=== PATIENT | female | born 1945 | race Caucasian/White ===

== ENCOUNTER → 2016-07-27 | Outpatient (CLI) | payer OTHER ==
[~2016-07-27] MED LIST: /ADVA50050; /ESOM40CA; COUM1TAB; DILA100C; ENOX40SY; LAMI25TA; LIDOCAINE 1% MDV 20ML VIAL As Ordered ONE; LUMIGAN; PROAAER; VICO5TAB; ZOLO100T
--- NOTE | 2016-07-27 12:52 | REP ---
POST BIOPSY MAMMOGRAM RIGHT BREAST: Postbiopsy mammogram right breast is performed in the LM and axillary CC projections. A metallic clip is deployed following stereotactic biopsy of clustered microcalcifications in the central aspect of the right breast. The clip is deployed deep to the calcifications. The calcifications are no longer visualized. Signed by Lb Coombs MD 07/27/2016 05:14 P
--- NOTE | 2016-07-27 13:35 | REP ---
SPECIMEN RADIOGRAPH: Specimen radiograph performed following stereotactic biopsy of clustered microcalcifications in the right breast. Multiple calcifications are seen in the specimens. Signed by Lb Coombs MD 07/27/2016 05:14 P
--- NOTE | 2016-07-31 12:22 | REP ---
STEREOTACTIC RIGHT BREAST BIOPSY: The procedure was performed under the direct supervision of Dr. Coombs. Patient has a history of a microcalcific cluster far posteriorly in the right breast seen on the previous mammogram dated 05/26/2016. The risks and benefits of the procedure were explained to the patient and informed consent was obtained. A lateral medial approach was utilized. The calcifications were localized using stereotactic mammographic guidance. The skin was prepped and draped in a sterile fashion. 1% Xylocaine was used as a local anesthetic. An 8-gauge suction assisted Mammotome needle was inserted and six core biopsies samples were obtained. Specimen radiograph demonstrates the presence of calcifications to be within the specimen. A marker clip was placed at the biopsy site. The patient tolerated the procedure well and there were no immediate complications. After the appropriate amount of monitored convalescence, the patient was discharged from the department. Reviewed by SHYANN Salter 07/31/2016 04:11 PEdited and Signed by Lb Coombs MD 08/14/2016 11:39 A
== END ==
LOC: M RADPRO 09:54
PROVIDERS: ATTEND Surgery
DX: D24.1 Benign neoplasm of right breast (principal); J45.909 Unspecified asthma, uncomplicated; Z79.01 Long term (current) use of anticoagulants; Z79.899 Other long term (current) drug therapy; Z88.5 Allergy status to narcotic agent; Z88.8 Allergy status to other drugs, medicaments and biological substances; Z91.040 Latex allergy status

== ENCOUNTER → 2019-06-11 | Outpatient (REF) | payer MEDICARE ==
[~2019-06-11] MED LIST changes: -/ADVA50050; -/ESOM40CA; +ADVA1AER2; -ENOX40SY; -LIDOCAINE 1% MDV 20ML VIAL As Ordered ONE; +LOVE1INJ; +NEXI1CAP3
== END ==
LOC: M LAB REF 10:28
PROVIDERS: ATTEND Dermatology
DX: C44.311 Basal cell carcinoma of skin of nose (principal); L57.8 Other skin changes due to chronic exposure to nonionizing radiation